=== PATIENT | female | born 1945 | race Caucasian/White ===

== ENCOUNTER 2020-09-23 12:06 | Outpatient (REF) | payer MEDICARE, SELFPAY ==
--- NOTE | ~2020-09-23 | XR_ITS ---
EXAMINATION: XR LUMBOSACRAL SPINE CLINICAL INFORMATION: Right lumbosacral pain. COMPARISON: Lumbar spine 08/30/2017 TECHNIQUE: 4 views of the lumbosacral spine are obtained. FINDINGS: There is normal lumbar segmentation with 5 nonrib-bearing lumbar vertebrae of normal height and normal lumbar lordosis. Again, there is mild dextrocurvature lumbar spine. There is no interval vertebral compression, spondylolisthesis, or destructive process. There are degenerative disc changes greatest at L5-S1 with disc narrowing and endplate sclerosis and vertebral spurring. There is also mild disc narrowing L3-L4 and L4-L5 and facet degeneration from L3 through S1. XR/XR lumbar spine 2-3V IMPRESSION: 1. Degenerative disc changes greatest at L5-S1. Lower lumbar facet degeneration. 2. No vertebral compression, spondylolisthesis, or destructive process.
== END 2020-09-23 12:07 | disposition home or self-care (01) ==
LOC: HO.HMGCX 12:06
PROVIDERS: PCP Internal Medicine; Visit Provider Internal Medicine
DX: M53.3 Sacrococcygeal disorders, not elsewhere classified (principal)
CPT/HCPCS: 72100

== ENCOUNTER 2022-12-31 19:10 | Inpatient (IN) | payer MEDICARE, SELFPAY ==
--- NOTE | ~2022-12-31 | XR_ITS ---
EXAMINATION: XR PELVIS CLINICAL INFORMATION: Left hip fracture COMPARISON: Previous x-ray 12/31/2022 TECHNIQUE: AP view of the pelvis. FINDINGS: There is a new left hip hemiarthroplasty in satisfactory position. No fracture or dislocation. The right hip joint is unremarkable. Bones of the visualized pelvis are unremarkable. There is atherosclerotic disease. XR/XR pelvis 1-2V IMPRESSION: Satisfactory appearance of left hip hemiarthroplasty.
--- NOTE | ~2022-12-31 | XR_ITS ---
EXAMINATION: XR HIP, LEFT CLINICAL INFORMATION: Fall COMPARISON: None available. TECHNIQUE: Frontal view of the pelvis with coned frontal and crosstable lateral views of the left hip. FINDINGS: There is an impacted femoral neck fracture seen with mild varus angulation. The femoral head itself is well-seated within the acetabulum. Contralateral right hip is unremarkable. Extensive vascular calcification seen. Unremarkable bowel gas pattern. XR/XR hip LT min 2V IMPRESSION: Impacted left femoral neck fracture with mild varus angulation.
--- NOTE | ~2022-12-31 | XR_ITS ---
EXAMINATION: PORTABLE CHEST 1 VIEW CLINICAL INFORMATION: Chest pain. COMPARISON: No recent pertinent prior studies are available for comparison. TECHNIQUE: Portable frontal view of the chest was obtained. FINDINGS: The lungs are well expanded. No focal infiltrate, effusion, edema, or pneumothorax. Cardiac and mediastinal silhouettes are within normal limits for size with vascular calcification in aorta. No acute bony abnormality seen. XR/XR chest 1V IMPRESSION: No evidence of acute disease.
--- NOTE | ~2022-12-31 | XR_ITS ---
EXAMINATION: XR KNEE, LEFT CLINICAL INFORMATION: Fall COMPARISON: None available. TECHNIQUE: Two views of the left knee. FINDINGS: No significant joint effusion. Bones are normal anatomic alignment with no acute fracture or dislocation. Mild tricompartmental degenerative changes. Prominent vascular calcification. XR/XR knee LT 2V IMPRESSION: Mild degenerative changes but no acute fracture or dislocation.
[2022-12-31 19:28] VITALS: BP 150/70; BP 161/75; PULSE 53; PULSE 74; RESP 15; TEMP 36.8; O2SAT 100; O2SAT 99; BMI 23.8
[2022-12-31 22:05] VITALS: BP 171/91; PULSE 88; RESP 18; TEMP 36.8; O2SAT 97
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
--- NOTE | 2022-12-31 22:20 | ECG_ITS ---
Test Reason : PRE OP FALL FX HIP Blood Pressure : / mmHG Vent. Rate : 081 BPM Atrial Rate : 081 BPM P-R Int : 166 ms QRS Dur : 070 ms QT Int : 406 ms P-R-T Axes : 065 025 067 degrees QTc Int : 471 ms Sinus rhythm with Premature supraventricular complexes Otherwise normal ECG No previous ECGs available Referred By: Cristian Argueta Electronically Signed By:LISBETH SERRANO
[2022-12-31 22:55] LABS: MANUAL DIFF FLAG NO
[2022-12-31 22:56] LABS: Basophils Percent Auto 0.3 % (0-2); Eosinophils Absolute Auto 0.1 X10*3/uL (0.0-0.4); Eosinophils Percent Auto 0.9 % (0-4); Hemoglobin 12.2 g/dl (12.0-16.0); Imm Gran Abs Auto 0.04 X10*3/uL (0.00-0.03); Imm Gran Pct Auto 0.4 % (0.0-0.4); Lymphocytes Absolute Auto 0.9 X10*3/uL (1.2-4.9); Lymphocytes Percent Auto 8.2 % (20-40); Mean Corpuscular Hemoglobin 30.7 pg (27.0-33.0); Mean Corpuscular Volume 93.2 fL (80.0-98.0); Monocytes Absolute Auto 0.5 X10*3/uL (0.1-1.2); Monocytes Percent Auto 4.3 % (2-11); Neutrophils Percent Auto 85.9 % (45-73); Platelet Count 152 X10*3/uL (160-400); Red Blood Count 3.97 X10*6/uL (4.20-5.50); Red Cell Distribution Width 13.2 % (11.0-16.0); White Blood Count 10.5 X10*3/uL (4.8-10.8)
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
[2022-12-31] MEDS: Morphine Sulfate 4 MG/ML CARTRIDGE IVPUSH (23:01)
[2022-12-31] MEDS: ondansetron HCL 4 MG/2 ML VIAL IVPUSH (23:02)
[2022-12-31 23:06] LABS: INTERNATIONAL NORM RATIO 0.9 (0.9-1.1); Prothrombin Time 11.4 SEC (11.1-13.3)
[2022-12-31 23:08] LABS: Partial Thromboplastin Time 30.1 SEC (26.0-36.4)
[2022-12-31 23:09] VITALS: BP 163/56; PULSE 84; RESP 16; TEMP 37.4; O2SAT 98
[2022-12-31 23:09] LABS: COVID-19 Test Negative (Negative); IDNOW Serial# 6674DD1D
[2022-12-31 23:10] LABS: Alanine Aminotransferase 18 U/L (0-31); Albumin Level 3.6 g/dL (3.5-5.0); Alkaline Phosphatase 71 U/L (39-117); Anion Gap 10 (12-20); Aspartate Amino Transferase 24 U/L (5-31); Bilirubin Total 0.5 mg/dL (0.0-1.0); Blood Urea Nitrogen 17 mg/dL (9-16); Calcium 9.2 mg/dL (8.4-10.2); Carbon Dioxide 27 mmol/L (22-29); Chloride 108 mmol/L (96-108); Creatinine Clr Calc Pharmacy 44.5; Estimated Glomerular Filt Rate 56; Glucose Random 156 mg/dL (60-115); Lipase 34 U/L (8-78); Potassium 4.2 mmol/L (3.3-5.1); Sodium 141 mmol/L (135-145); Total Protein 6.4 g/dL (6.5-8.0)
[2022-12-31] MEDS: Lactated Ringers 1,000 ML 125 ML IVCONT (23:54)
[2022-12-31] MEDS: 0.9 % Sodium Chloride Flush 3 ML SYRINGE IVFLUSH (23:54)
[2023-01-01 00:30] VITALS: BP 181/72; PULSE 90; RESP 20; TEMP 37; O2SAT 96
[2023-01-01] MEDS: HYDROmorphone HCl 1 MG/ML SYRINGE IVPUSH (00:34)
[2023-01-01] MEDS: Morphine Sulfate 4 MG/ML CARTRIDGE IVPUSH ×2 (02:44→07:12)
[2023-01-01 03:32] VITALS: BP 139/65; PULSE 88; RESP 18; TEMP 36.9; O2SAT 99
[2023-01-01 06:06] LABS: MANUAL DIFF FLAG NO
[2023-01-01 06:12] LABS: Basophils Percent Auto 0.2 % (0-2); Eosinophils Percent Auto 0.1 % (0-4); Hematocrit 39.3 % (37.0-47.0); Hemoglobin 12.7 g/dl (12.0-16.0); Imm Gran Abs Auto 0.05 X10*3/uL (0.00-0.03); Imm Gran Pct Auto 0.4 % (0.0-0.4); Lymphocytes Absolute Auto 0.8 X10*3/uL (1.2-4.9); Lymphocytes Percent Auto 6.9 % (20-40); Mean Corpuscular HGB Conc 32.3 g/dl (31.0-35.0); Mean Corpuscular Hemoglobin 30.8 pg (27.0-33.0); Mean Corpuscular Volume 95.2 fL (80.0-98.0); Monocytes Absolute Auto 0.6 X10*3/uL (0.1-1.2); Monocytes Percent Auto 5.5 % (2-11); Neutrophils Absolute Auto 10.1 x10*3/uL (2.0-8.3); Neutrophils Percent Auto 86.9 % (45-73); Platelet Count 131 X10*3/uL (160-400); Red Blood Count 4.13 X10*6/uL (4.20-5.50); Red Cell Distribution Width 13.3 % (11.0-16.0); White Blood Count 11.6 X10*3/uL (4.8-10.8)
[2023-01-01 06:41] LABS: Anion Gap 14 (12-20); Blood Urea Nitrogen 19 mg/dL (9-16); Calcium 9.2 mg/dL (8.4-10.2); Carbon Dioxide 23 mmol/L (22-29); Chloride 107 mmol/L (96-108); Creatinine Clr Calc Pharmacy 47.9; Estimated Glomerular Filt Rate > 60; Glucose Random 139 mg/dL (60-115); Potassium 4.8 mmol/L (3.3-5.1); Sodium 139 mmol/L (135-145)
[2023-01-01] MEDS: Lactated Ringers 1,000 ML 125 ML IVCONT ×3 (07:13→20:27)
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
--- NOTE | 2023-01-01 07:47 | PHA.MEDREC ---
Pharmacy Consult ? Medication Reconciliation Pharmacy has completed the medication reconciliation.
[2023-01-01 08:00] VITALS: BP 144/65; PULSE 80; RESP 18; TEMP 36.4; O2SAT 96
[2023-01-01] MEDS: Ezetimibe 10 MG TABLET PO (08:16)
[2023-01-01] MEDS: Atorvastatin Calcium 80 MG TABLET PO (08:16)
[2023-01-01] MEDS: Metoprolol Tartrate 100 MG TABLET PO ×2 (08:16→20:24)
--- NOTE | 2023-01-01 08:54 | PC.NURSE ---
called and left info update about patient.
[2023-01-01] MEDS: Morphine Sulfate 4 MG/ML CARTRIDGE 3 MG IVPUSH ×4 (10:42→20:24)
[2023-01-01] MEDS: LORazepam 0.5 MG TABLET PO (10:42)
--- NOTE | 2023-01-01 11:58 | PC.NURSE ---
Pt states her Left foot feels numb, color is normal, both feet are cold but her legs are warm, no swelling, able to move her toes, +PP. notified.
[2023-01-01 15:37] VITALS: BP 146/67; PULSE 62; RESP 20; TEMP 36.4; O2SAT 93
--- NOTE | 2023-01-01 16:15 | MHC.CM.PN ---
PT REPORTS SHE LIVES WITH HER SPOUSE AND IS INDEPENDENT WITH CARE PT REPORTS SHE HAS NO DME AND NO HOME SERVICES PT DOES NOT THINK SHE HAS A HCP, SHE SAYS SHE WOULD NAME HER AND NIECE, EDIE PEREZ, HER AGENTS, HOWEVER SHE WOULD LIKE TO WAIT UNTIL TOMORROW. SHE WILL CONFIRM SHE DOES NOT HAVE ONE AND FEELS TOO TIRED TODAY. PCP: BURT ESTRADA IMM DELIVERED DCP: LIKELY STR VIA BLS PT WILL GIVE PREFERENCES TOMORROW WELL
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
[2023-01-01 20:00] VITALS: BP 151/59; PULSE 68; RESP 20; TEMP 36.6; O2SAT 93
[2023-01-01] MEDS: Melatonin 3 MG TABLET 6 MG PO (20:24)
[2023-01-02] VITALS (16 sets, daily range): BP systolic 131–174; BP diastolic 52–73; PULSE 56–76; RESP 16–20; TEMP 36.1–36.6; O2SAT 92–97
[2023-01-02] MEDS: Morphine Sulfate 4 MG/ML CARTRIDGE 3 MG IVPUSH ×2 (04:11→08:20)
[2023-01-02] MEDS: Lactated Ringers 1,000 ML 125 ML IVCONT ×2 (04:12→17:35)
[2023-01-02] MEDS: Atorvastatin Calcium 80 MG TABLET PO (08:20)
[2023-01-02] MEDS: Ezetimibe 10 MG TABLET PO (08:20)
[2023-01-02] MEDS: Metoprolol Tartrate 100 MG TABLET PO ×2 (08:20→20:28)
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
--- NOTE | 2023-01-02 14:57 | MHC.CM.PN ---
pt being dcd to psych unit
--- NOTE | 2023-01-02 14:59 | MHC.CM.PN ---
per rounds pt is not ready for dcmay have hip fx
[2023-01-02] MEDS: 0.9 % Sodium Chloride Flush 3 ML SYRINGE IVFLUSH (17:37)
[2023-01-02] MEDS: ceFAZolin Sodium/Dextrose,Iso 2 GM/50 ML PIGGYBACK IV (20:28)
[2023-01-02] MEDS: Aspirin Enteric Coated 325 MG TABLET.DR PO (20:28)
--- NOTE | 2023-01-02 22:20 | PC.NURSE ---
Patient voided twice this shift with assistance of MORGAN Trinidad#3 at [id number]
[2023-01-03] VITALS (7 sets, daily range): BP systolic 113–177; BP diastolic 58–77; PULSE 68–84; RESP 16–18; TEMP 36.4–36.8; O2SAT 95–97
[2023-01-03] MEDS: ceFAZolin Sodium/Dextrose,Iso 2 GM/50 ML PIGGYBACK IV (03:58)
[2023-01-03 06:07] LABS: Hematocrit 32.3 % (37.0-47.0); Hemoglobin 10.5 g/dl (12.0-16.0)
[2023-01-03 06:19] LABS: Anion Gap 15 (12-20); Blood Urea Nitrogen 16 mg/dL (9-16); Calcium 8.4 mg/dL (8.4-10.2); Carbon Dioxide 24 mmol/L (22-29); Chloride 104 mmol/L (96-108); Creatinine Clr Calc Pharmacy 51.4; Estimated Glomerular Filt Rate > 60; Glucose Fasting 134 mg/dL (60-99); Sodium 139 mmol/L (135-145)
[2023-01-03] MEDS: Aspirin Enteric Coated 325 MG TABLET.DR PO ×2 (07:30→21:27)
[2023-01-03] MEDS: Ezetimibe 10 MG TABLET PO (07:30)
[2023-01-03] MEDS: lisinopriL 20 MG TABLET PO (07:31)
[2023-01-03] MEDS: Atorvastatin Calcium 80 MG TABLET PO (07:31)
[2023-01-03] MEDS: oxyCODONE HCl Immed Release 5 MG TABLET PO ×3 (07:31→18:08)
[2023-01-03] MEDS: Metoprolol Tartrate 100 MG TABLET PO ×2 (07:31→21:28)
[2023-01-03] MEDS: 0.9 % Sodium Chloride Flush 3 ML SYRINGE IVFLUSH ×6 (07:32→18:27)
--- NOTE | 2023-01-03 10:08 | P.PNOP_ITS ---
Subjective Subjective Date of Service: 01/03/23 Interval history: POD 1 s/p Left hip hemiarthroplasty no overnight e vents resting in bed Physical Exam Vital Signs: Vital Signs: Last Vital Signs Temp 98.3 F 01/03/23 07:04 Pulse 84 01/03/23 07:04 Resp 18 01/03/23 07:04 BP 160/68 H 01/03/23 07:04 Pulse Ox 97 01/03/23 07:04 O2 Del Method Nasal Cannula 01/03/23 07:04 O2 Flow Rate 3 01/03/23 07:04 BMI result Body Mass Index 23.8 Const: General: cooperative, healthy appearing and no acute distress Resp: Effort & Inspection: normal respiratory effort and able to speak in complete sentences Cardio: Rate: regular rate Peripheral pulses: Peripheral pulses 2+ throughout GI: Palpation (GI): Soft to palpation Skin: General skin exam: no rashes or lesions noted Extrem: Other: left hip bandage c/d/i, she is able to plantar and dorsifex, nvi Procedures Date of Service Date of Service: 01/03/23 Progress Note: A&P Assessment and plan (1) Fracture of femoral neck, closed: Status: Acute Assessment and Plan: * Continue pain mgmnt * Begin lovenox for dvt ppx * begin PT /OT for LT hip ny * Dispo planning-Pending PT eval, pain mgmnt Time Spent With Patient Time: Total time managing care of this patient today ____ minutes. Quality Stroke Does the patient have a stroke diagnosis?: No VTE Prior VTE?: No VTE Risk Level:: Medical - moderate - high VTE Device Contraindication: Treatment Not Indicated VTE Drug Contraindication: N/A - Med Ordered
--- NOTE | 2023-01-03 11:44 | HO.POSTANES ---
Post Anesthesia Evaluation Post Anesthesia Evaluation Date of Service: 01/03/23 Vital Signs: Vital Signs Temp Pulse Resp BP Pulse Ox O2 Del Method O2 Flow Rate 01/03/23 11:06 84 160/68 H 97 01/03/23 07:04 98.3 F 84 18 160/68 H 97 Nasal Cannula 3 01/03/23 03:36 97.6 F 81 18 177/77 H 96 Nasal Cannula 2 Anesthesia: General Mental Status: Awake Pain Control: Satisfactory Nausea/Vomiting: None Hydration: Adequate Anesthesia-Related Issues: No Anes. Related Issues
[2023-01-03] MEDS: Enoxaparin Sodium 40 MG/0.4 ML SYRINGE SUBCUT (12:38)
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
[2023-01-03] MEDS: Acetaminophen 325 MG TABLET 650 MG PO (21:28)
[2023-01-04] MEDS: 0.9 % Sodium Chloride Flush 3 ML SYRINGE IVFLUSH (00:26)
[2023-01-04 03:46] VITALS: BP 157/70; PULSE 88; RESP 17; TEMP 36.6; O2SAT 95
[2023-01-04] MEDS: Metoprolol Tartrate 100 MG TABLET PO (07:27)
[2023-01-04] MEDS: oxyCODONE HCl Immed Release 5 MG TABLET PO (07:28)
[2023-01-04] MEDS: Aspirin Enteric Coated 325 MG TABLET.DR PO (07:28)
[2023-01-04] MEDS: Atorvastatin Calcium 80 MG TABLET PO (07:28)
[2023-01-04] MEDS: lisinopriL 20 MG TABLET PO (07:28)
[2023-01-04] MEDS: Acetaminophen 325 MG TABLET 650 MG PO (07:29)
[2023-01-04] MEDS: Ezetimibe 10 MG TABLET PO (07:29)
[2023-01-04 07:33] VITALS: BP 139/66; PULSE 103; RESP 20; TEMP 36.8; O2SAT 93
--- NOTE | 2023-01-04 07:41 | P.PNOP_ITS ---
Subjective Subjective Date of Service: 01/04/23 Interval history: POD 2 s/p Left hip hemiarthroplasty no overnight events resting in bed no additional complaints Physical Exam Vital Signs: Vital Signs: Last Vital Signs Temp 98.2 F 01/04/23 07:33 Pulse 103 H 01/04/23 07:33 Resp 20 01/04/23 07:33 BP 139/66 01/04/23 07:33 Pulse Ox 93 01/04/23 07:33 O2 Del Method Room Air 01/04/23 07:33 O2 Flow Rate 3 01/03/23 07:04 BMI result Body Mass Index 23.8 Const: General: cooperative, healthy appearing and no acute distress Resp: Effort & Inspection: normal respiratory effort and able to speak in complete sentences Cardio: Rate: regular rate Peripheral pulses: Peripheral pulses 2+ throughout GI: Palpation (GI): Soft to palpation Skin: General skin exam: no rashes or lesions noted Extrem: Other: left hip bandage c/d/i, she is able to plantar and dorsifex, nvi Procedures Date of Service Date of Service: 01/04/23 Progress Note: A&P Assessment and plan (1) Fracture of femoral neck, closed: Status: Acute Assessment and Plan: * Continue pain mgmnt * Continue lovenox for dvt ppx * Continue PT /OT for LT hip ny * Dispo planning-Pending PT eval, pain mgmnt Time Spent With Patient Time: Total time managing care of this patient today ____ minutes. Quality Stroke Does the patient have a stroke diagnosis?: No VTE Prior VTE?: No VTE Risk Level:: Medical - moderate - high VTE Device Contraindication: Treatment Not Indicated VTE Drug Contraindication: N/A - Med Ordered
[2023-01-04 08:32] VITALS: BP 139/66; PULSE 103; O2SAT 93
--- NOTE | 2023-01-04 09:16 | MHC.CM.PN ---
PATIENT IS ACCEPTED AT [facility] UNIT ROOM 101 PATIENT AND RN AWARE. [facility] WILL BE ON SITE BETWEEN 11:15-11:45. IMM 01/03/23 IN CHART
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
[2023-01-04 11:52] VITALS: BP 110/55; PULSE 54; RESP 20; TEMP 36.2; O2SAT 95
--- NOTE | 2023-01-05 15:24 | P.BOP_ITS ---
Brief Operative Note Date of Service: 01/02/23 Pre-op diagnosis: Left hip displaced femoral neck fracture Post-op diagnosis: same Procedure: Left hip cemented bipolar hemiarthroplasty Implants: Eden cemented bipolar hemiarthroplasty with an Accolade C femoral stem size 3, a femoral head size 26 with a-3 mm neck, femoral shell size 43, a small cement plug, distal centralizer size 10 Surgeon: Travon Durbin MD Anesthesia: GETA Was an Inside Sales Representative used for this Procedure?: No Estimated blood loss (mL): 200 Condition: stable Disposition: PACU
--- NOTE | 2023-01-05 15:25 | W.PM.OPN ---
Operative Note Operative Note Date of Service: 01/02/23 Narrative: After the patient was identified as Darlene hooker and their left hip was initialed by myself the patient was brought to the operating room where general anesthesia via endotracheal tube was induced by the anesthesiologist in routine fashion. The patient was given 2 g of IV Ancef for infection prophylaxis. The patient was then gently rolled into the lateral position. An axillary roll was put into place. All bony prominences were well padded. The patient's pelvis was held securely with hip bolsters. The patient's left hip region and lower extremity were prepped and draped in sterile fashion. A #10 scalpel blade was then used to make a curvilinear incision centered over the greater trochanter. The subcutaneous tissues were dissected using electrocautery down to the fascia kori. The fascia kori was then split in line with the skin incision using electrocautery. The split in the fascia kori was curved posteriorly along its cephalad aspect to help prevent injury to the innervation of the tensor fascia kori muscle. The patient's leg was gently externally rotated. A lateral Wiseman approach was then taken down to the anterior joint capsule. The anterior half of the vastus lateralis was split 1 cm from its insertion and tagged with #2 Ethibond suture. The anterior 1/3 of the gluteus medius incision was then split using electrocautery and tagged with #2 Ethibond suture. An anterior capsulectomy was then performed using electrocautery. The femoral neck fracture was identified. The patient's lower extremity was gently externally rotated. The femoral neck cut was made 1 cm proximal to the lesser trochanter. The femoral head was then removed using a corkscrew. The femoral head measured to be a size 43. The trial size 43 femoral head was put into the acetabulum. The trial fit well. The trial was removed. The acetabulum was irrigated with copious amounts of normal saline solution via pulse lavage. The patient's leg was then placed into a sterile pouch along the anterior aspect of the surgical suite table. Soft tissues were retracted around the proximal femur. A box cutting osteotome was used to make a groove in the medial aspect of the greater trochanter. Broaching was begun with a size 0 press-fit broach. Broaching was increased up to a size 3 cemented broach. The size 3 broach fit well. The broach was removed. The distal centralizer was measured to be a size 10. A small cement plug was put into place. The intramedullary canal was irrigated with copious amounts of normal saline solution via pulse lavage while the cement was mixed. Once the cement reached a doughy state it was pressurized into the intramedullary canal. The final implant was put into place. Once the cement had hardened a trial size 43 shell with a -3 mm neck was put into place. The hip was reduced. Leg lengths were clinically equal. The hip was taken through a full range of motion. There was no instability. The hip was dislocated and the patient's leg was placed into the sterile pouch. The trial head was removed. The wound was irrigated with copious amounts of normal saline solution via pulse lavage. The final head and shell were impacted in the place. Leg lengths were clinically equal. Hip was taken through a full range of motion. There was no instability. The patient's leg was then placed onto a well-padded Bucio stand. The wound was once again irrigated. The vastus lateralis and tensor fascia kori tendons were repaired with #2 Ethibond [id number] interrupted suture. The wound was once again irrigated. The fascia kori was closed with #2 Ethibond [id number] interrupted suture as well as #1 Vicryl [id number] interrupted suture. The wound was once again irrigated. The subcutaneous tissues were closed with 0 Vicryl and 2-0 Vicryl interrupted suture. The skin was closed with skin svitlana. Dry sterile dressing was placed over the incision. The patient was gently rolled into the supine position. The patient was awoken and extubated in the operating room. The patient was transferred to the recovery room in stable condition.
== END 2023-01-04 12:03 | disposition skilled nursing facility (03) | DRG 522 ==
LOC: HO.ED 22:53 → HO.EDOVER 23:11 → HO.S3 23:24
PROVIDERS: Orthopaedic Surgery; Admitting Provider Student in an Organized Health Care Education/Training Program; Emergency Provider Emergency Medicine Emergency Medical Services; PCP Internal Medicine; Visit Provider Internal Medicine
PROC: 0SRS0J9 Replacement of Left Hip Joint, Femoral Surface with Synthetic Substitute, Cemented, Open Approach (ICD-10-PCS; CPT 27125; principal; 2023-01-02 12:00)
DX: S72.002A Fracture of unspecified part of neck of left femur, initial encounter for closed fracture (principal); W19.XXXA Unspecified fall, initial encounter; F39 Unspecified mood [affective] disorder; I10 Essential (primary) hypertension; E78.2 Mixed hyperlipidemia; Z20.822 Contact with and (suspected) exposure to COVID-19; Z79.51 Long term (current) use of inhaled steroids; Z79.899 Other long term (current) drug therapy
CPT/HCPCS: 36415; 71045; 72170; 73502; 73560; 80048; 80053; 83690; 85014; 85018; 85025; 85610; 85730; 86850; 86900; 86901; 87635; 88305; 88311; 93005; 97110; 97116; 97162; 97165; 99285; C1713; C1776; J0131; J0690; J1100; J1170; J1650; J2270; J2371; J2405; J3010; J3370

== ENCOUNTER → 2022-12-31 22:57 | Outpatient (BNV) | payer MEDICARE, SELFPAY | PROVIDERS: Admitting Provider Student in an Organized Health Care Education/Training Program; Emergency Provider Emergency Medicine Emergency Medical Services; PCP Internal Medicine; Visit Provider Physician Assistant | DX: S72.002A Fracture of unspecified part of neck of left femur, initial encounter for closed fracture (principal) | CPT/HCPCS: 27236; 99024; 99222; 99231 ==

== ENCOUNTER → 2022-12-31 22:57 | Outpatient (BNV) | payer MEDICARE, SELFPAY | PROVIDERS: Admitting Provider Student in an Organized Health Care Education/Training Program; Emergency Provider Emergency Medicine Emergency Medical Services; PCP Internal Medicine; Visit Provider Student in an Organized Health Care Education/Training Program | DX: S72.002A Fracture of unspecified part of neck of left femur, initial encounter for closed fracture (principal); I10 Essential (primary) hypertension | CPT/HCPCS: 99222; 99231; 99232; 99239 ==

== ENCOUNTER 2023-01-16 09:56 | Outpatient (REF) | payer MEDICARE, SELFPAY ==
--- NOTE | ~2023-01-16 | XR_ITS ---
EXAMINATION: XR PELVIS CLINICAL INFORMATION: Pain in unspecified hip. COMPARISON: 01/02/2023 TECHNIQUE: AP view of the pelvis. FINDINGS: Prosthetic components of the left bipolar hip hemiarthroplasty appears appropriately positioned. The cemented femoral component is intact without surrounding lucency. Right hip joint appears relatively well-preserved. SI joints are unremarkable. No acute fractures. Calcific atherosclerosis is present in the iliac and femoral arteries. No acute soft tissue findings. XR/XR pelvis 1-2V IMPRESSION: Appropriate alignment of the left hip hemiarthroplasty without evidence of complications. No acute osseous findings.
== END 2023-01-16 09:57 | disposition home or self-care (01) ==
LOC: HO.HOSX 09:56
PROVIDERS: Visit Provider Physician Assistant
DX: S72.002D Fracture of unspecified part of neck of left femur, subsequent encounter for closed fracture with routine healing (principal); X58.XXXD Exposure to other specified factors, subsequent encounter
CPT/HCPCS: 72170

== ENCOUNTER 2023-01-16 14:10 | Outpatient (AMB) | payer MEDICARE, SELFPAY ==
--- NOTE | 2023-01-16 14:29 | A.OFFVIS_ITS ---
Intake Intake Visit Reasons: PO- left hip ny 01/02/2023 Intake Note: Darlene is a 77 year old woman who presents today for a post operative appointment s/p Left Hip Arthroplasty on 01/02/[address] Faulkner . Patient reports that she is doing well she has mild about of pain in the left hip. Allergies sucralfate [From CARAFATE] Allergy (Unknown, Verified 01/01/23 00:09) ITCHING HPI PO- left hip ny 01/02/2023 HPI Details Ms. Granda is a 77-year-old female who presents the office today for routine follow-up status post left hip hemiarthroplasty on 01/02/[address] Durbin. Overall patient is doing very well. She has been discharged home from [facility]. She is ambulating with the use of a walker. Is only using Tylenol for pain management. However, the patient has not taken any Lovenox since discharge on Monday. [facility] Medical History Mood disorder Essential hypertension Mixed hyperlipidemia Social History Household Members: Spouse Housing: [facility] Do you presently have visiting nurse or other home services: No Alcohol intake: never Patient Tobacco Use Status: Never used Tobacco service: No Physical Exam Const General: cooperative, healthy appearing and no acute distress Resp Effort & Inspection: normal respiratory effort and able to speak in complete sentences Cardio Rate: regular rate Peripheral pulses: Peripheral pulses 2+ throughout GI Palpation (GI): Soft to palpation Skin Lesions: no lesions Rashes: no rashes Extrem Other: Left hip incision sites clean dry and intact. [place] intact. No surrounding erythema or drainage. No signs of infection. Able to straight leg raise. Good internal external range of motion. NVI. Assessment & Plan Assessment & Plan (1) Fracture of femoral neck, closed: Code(s): S72.009A - Fracture of unspecified part of neck of unspecified femur, initial encounter for closed fracture Qualifiers: Encounter type: initial encounter Laterality: left Qualified Code(s): S72.002A - Fracture of unspecified part of neck of left femur, initial encounter for closed fracture Plan: Ms. Granda is a 77-year-old female who presents the office today for routine follow-up status post left hip hemiarthroplasty on 01/02/[address] Durbin. Overall patient is doing very well. [facility] She is ambulating with the use of a walker. Is only using Tylenol for pain management. However, the patient has not taken any Lovenox since discharge on Monday. I have sent a new prescription to the pharmacy for her. [place] removed. Steri- Strips applied. She will have VNA services coming to her home for physical therapy. They should work on glute, core, quad strengthening and gait training. X-rays obtained the office today reveal intact orthopedic hardware with routine healing. Follow-up in 4 weeks sooner if needed. Orders: Orders XR pelvis 1-2V Today M25.559 - Pain in unspecified hip Medications: New enoxaparin (Lovenox) 40 mg (0.4 mL) subcut Q24H 12 mL 0RF 30 days Coding Level of Care Code Global (81526) Diagnoses Fracture of femoral neck, closed S72.002A Encounter type: initial encounter Laterality: left
== END 2023-01-16 14:55 | disposition home or self-care (01) ==
PROVIDERS: PCP Internal Medicine; Visit Provider Physician Assistant
DX: S72.002A Fracture of unspecified part of neck of left femur, initial encounter for closed fracture (principal)
CPT/HCPCS: 99024

== ENCOUNTER 2023-02-16 14:05 | Outpatient (AMB) | payer MEDICARE, SELFPAY ==
--- NOTE | 2023-02-16 14:08 | MHC.OFFVIS ---
Intake Intake Visit Reasons: PO-left hip ny 01/02/2023 Intake Note: Darlene is a 77 year old woman who presents today for a post operative appointment s/p Left Hip Arthroplasty on 01/02/[address] Faulkner . Patient reports doing fine. She states taking a Tylenol when she feels some discomfort and it helps her a lot. Allergies sucralfate [From CARAFATE] Allergy (Unknown, Verified 02/16/23 14:09) ITCHING HPI PO-left hip ny 01/02/2023 HPI Details 77-year-old female who presents in the office today 6 weeks status post left hip cemented bipolar hemiarthroplasty, which was performed on 01/02/[address] Durbin. While in the office today she reports he is doing fine. She confirms she is taking tylenol when she feels discomfort, which this gives her great relief. [facility] Medical History Mood disorder Essential hypertension Mixed hyperlipidemia Social History Household Members: Spouse Housing: [facility] Do you presently have visiting nurse or other home services: No Alcohol intake: never Patient Tobacco Use Status: Never used Tobacco service: No Review of Systems Const All systems reviewed & are unremarkable except as noted in HPI and below Physical Exam Const General: cooperative, healthy appearing and no acute distress Resp Effort & Inspection: normal respiratory effort and able to speak in complete sentences Cardio Rate: regular rate Peripheral pulses: Peripheral pulses 2+ throughout GI Palpation (GI): Soft to palpation Skin Lesions: no lesions Rashes: no rashes Extrem Other: Left hip: Incision site is clean, dry, and intact; completely healed. No signs of infection. Good flexion, extension, internal, and external rotation. NVI. Assessment & Plan Assessment & Plan (1) History of left hip hemiarthroplasty: Code(s): Z96.642 - Presence of left artificial hip joint Plan Ms. Granda is a 77-year-old female who presents in the office today 6 weeks status post left hip cemented bipolar hemiarthroplasty, which was performed on 01/02/[address] Durbin. While in the office today she reports he is doing fine. She confirms she is taking tylenol when she feels discomfort, which this gives her great relief. The patient will continue to work with physical therapy on gait training, glute, quad, and core strengthening posterior hip precautions. Follow up will be in 6 weeks, or sooner if needed. X-rays of the left hip which were obtained while in the office today and were reviewed by me, Mercedes Rodríguez PA-C, revealed intact orthopedic hardware with routine healing. Patient Instructions: Scribed for Mercedes Rodríguez PA-C by Veran Charlton medical transcription, on 02/16/2023 at 2:15 pm, EST. Coding Level of Care Code Global (67442) Diagnoses History of left hip hemiarthroplasty Z96.642
== END 2023-02-16 14:55 | disposition home or self-care (01) ==
PROVIDERS: PCP Internal Medicine; Visit Provider Physician Assistant
DX: Z96.642 Presence of left artificial hip joint (principal)
CPT/HCPCS: 99024

== ENCOUNTER → 2023-02-16 14:05 | Outpatient (BNVA) | payer MEDICARE, SELFPAY | PROVIDERS: PCP Internal Medicine; Visit Provider Physician Assistant ==

== ENCOUNTER 2023-03-30 13:03 | Outpatient (AMB) | payer MEDICARE, SELFPAY ==
--- NOTE | 2023-03-30 13:13 | A.OFFVIS_ITS ---
Intake Intake Visit Reasons: PO-left hip ny 01/02/2023 Intake Note: Darlene is a 77 year old female who presents today with her for a post op appointment s/p left hip ny 01/02/23 Patient reports having some soreness when over doing it with walking. Allergies sucralfate [From CARAFATE] Allergy (Unknown, Verified 03/30/23 13:16) ITCHING HPI PO-left hip ny 01/02/2023 HPI Details 77-year-old female who presents in the o ffice today 3 months status post left hip cemented bipolar hemiarthroplasty, which was performed on 01/02/[address] Durbin. I last saw the patient in the office on 02/16/2023 where she was instructed to continue to work with physical therapy on gait training, glute, quad, and core strengthening posterior hip precautions. The patient reports some soreness when over doing it while walking. [facility] Medical History Mood disorder Essential hypertension Mixed hyperlipidemia Social History Household Members: Spouse Housing: [facility] Do you presently have visiting nurse or other home services: No Alcohol intake: never Patient Tobacco Use Status: Never used Tobacco service: No Review of Systems Const All systems reviewed & are unremarkable except as noted in HPI and below Physical Exam Const General: cooperative, healthy appearing and no acute distress Resp Effort & Inspection: normal respiratory effort and able to speak in complete sentences Cardio Rate: regular rate Peripheral pulses: Peripheral pulses 2+ throughout GI Palpation (GI): Soft to palpation Skin Lesions: no lesions Rashes: no rashes Extrem Other: Left hip: Incision site is completely healed with no signs of infection. Ambulating without antalgic gait. Good internal and external rotation. NVI. Assessment & Plan Assessment & Plan (1) History of left hip hemiarthroplasty: Code(s): Z96.642 - Presence of left artificial hip joint Plan Ms. Granda is a 77-year-old female who presents in the office today 3 months status post left hip cemented bipolar hemiarthroplasty, which was performed on 01/02/[address] Durbin. I last saw the patient in the office on 02/16/2023 wh ere she was instructed to continue to work with physical therapy on gait training, glute, quad, and core strengthening posterior hip precautions. The patient reports some soreness when over doing it while walking. The patient ambulates with a cane as an assistive device. She will return to normal activities as tolerated. She has completed all her physical therapy sessions at this time. Follow up will be PRN, or sooner if needed. Patient Instructions: Scribed for Mercedes Rodríguez PA-C by Verna Charlton electromedical equipment repairer, on 03/30/2023 at 1:09 pm, EST. Coding Level of Care Code Global (41980) Diagnoses History of left hip hemiarthroplasty Z96.642
== END 2023-03-30 13:31 | disposition home or self-care (01) ==
PROVIDERS: PCP Internal Medicine; Visit Provider Physician Assistant
DX: Z96.642 Presence of left artificial hip joint (principal)
CPT/HCPCS: 99024

== ENCOUNTER → 2023-03-30 13:03 | Outpatient (BNVA) | payer MEDICARE, SELFPAY | PROVIDERS: PCP Internal Medicine; Visit Provider Physician Assistant | DX: Z96.642 Presence of left artificial hip joint (principal) | CPT/HCPCS: 99212 ==

== ENCOUNTER 2023-07-13 12:47 | Outpatient (REF) | payer MEDICARE, SELFPAY ==
[2023-07-13 16:25] LABS: MANUAL DIFF FLAG NO
[2023-07-13 16:27] LABS: Basophils Percent Auto 0.6 % (0-2); Eosinophils Absolute Auto 0.4 X10*3/uL (0.0-0.4); Hematocrit 38.9 % (37.0-47.0); Hemoglobin 12.5 g/dl (12.0-16.0); Imm Gran Abs Auto 0.02 X10*3/uL (0.00-0.03); Imm Gran Pct Auto 0.3 % (0.0-0.4); Lymphocytes Absolute Auto 1.6 X10*3/uL (1.2-4.9); Lymphocytes Percent Auto 26.1 % (20-40); Mean Corpuscular HGB Conc 32.1 g/dl (31.0-35.0); Mean Corpuscular Hemoglobin 30.2 pg (27.0-33.0); Monocytes Absolute Auto 0.6 X10*3/uL (0.1-1.2); Monocytes Percent Auto 9.7 % (2-11); Neutrophils Absolute Auto 3.5 x10*3/uL (2.0-8.3); Neutrophils Percent Auto 56.3 % (45-73); Platelet Count 170 X10*3/uL (160-400); Red Blood Count 4.14 X10*6/uL (4.20-5.50); Red Cell Distribution Width 13.9 % (11.0-16.0); White Blood Count 6.2 X10*3/uL (4.8-10.8)
[2023-07-13 16:39] LABS: Anion Gap 11 (12-20); Blood Urea Nitrogen 22 mg/dL (9-16); Calcium 9.5 mg/dL (8.4-10.2); Carbon Dioxide 30 mmol/L (22-29); Chloride 106 mmol/L (96-108); Estimated Glomerular Filt Rate 55; Glucose Random 80 mg/dL (60-115); Potassium 4.9 mmol/L (3.3-5.1); Sodium 142 mmol/L (135-145)
== END 2023-07-13 12:48 | disposition home or self-care (01) ==
LOC: HO.HMGCLDS 12:47
PROVIDERS: PCP Internal Medicine; Visit Provider Internal Medicine
DX: R53.83 Other fatigue (principal)
CPT/HCPCS: 36415; 80048; 85025

== ENCOUNTER 2023-07-20 10:27 | Outpatient (REF) | payer MEDICARE, SELFPAY ==
--- NOTE | ~2023-07-20 | MM_ITS ---
EXAMINATION: BONE DENSITOMETRY CLINICAL INDICATION: Postmenopausal. COMPARISON: This is the patient's baseline examination. TECHNIQUE: Using a [employer] DXA System (software version: 13.1) manufactured by [employer], dual-energy x-ray absorptiometry was performed of the lumbar spine and right hip. Status post left total hip arthroplasty. The images are of good technical quality. Summary results are attached. FINDINGS: RIGHT FEMUR, NECK: BMD 0.723 g/cm2, Z-score -0.1, T-score -2.3, osteopenia. RIGHT FEMUR, TOTAL: BMD 0.733 g/cm2, Z-score -0.2, T-score -2.2, osteopenia. AP SPINE L1-L4: BMD 1.061 g/cm2, Z-score 0.9, T-score -1.0, normal. IDENTIFIED RISK FACTORS: Early menopause, history of fracture (adult), hysterectomy, bilateral oophorectomy, secondary osteoporosis. HISTORY OF FRACTURE: Hip. MEDICATIONS: Multivitamin. MM/XR DEXA axial skeleton IMPRESSION: 1. DIAGNOSIS: Osteopenia based on the lowest T-score value of -2.3 in the femoral neck applying World Health Organization criteria. 2. 10-YEAR FRACTURE RISK PREDICTION, FRAX: Major osteoporotic fracture (clinical spine, forearm, hip or shoulder) 23.2%. Hip fracture 7.1%. 3. Treatment Recommendations: NOF guidelines recommend consideration for treatment in postmenopausal women and men age 50 and older presenting with the following: -A hip or vertebral (clinical or morphometric) fracture. -T-score less than or equal to -2.5 at the femoral neck or spine after appropriate evaluation to exclude secondary causes. -Low bone mass at the hip or spine and a 10-year fracture probability by FRAX of greater than or equal to 3% for hip fracture or greater than or equal to 20% for major osteoporotic fracture based on the [place] adapted WHO algorithm. 4. Other Recommendations: All treatment decisions require clinical judgment and consideration of individual patient factors, including patient preferences, comorbidities, previous drug use, risk factors not captured in the FRAX model (e.g. frailty, falls, vitamin D deficiency, increased bone turnover, interval significant decline in bone density) and possible under or overestimation of fracture risk by FRAX. Additional medical evaluation for secondary cause of low bone mineral density may be appropriate. FUTURE SCAN RECOMMENDATION: People with diagnosed cases of osteoporosis or at high risk for fracture should have regular bone mineral density tests. For patients eligible for Medicare, routine testing is allowed once every 2 years. The testing frequency can be increased to one year for patients who have rapidly progressing disease, those who are receiving or discontinuing medical therapy to restore bone mass, or have additional risk factors.
== END 2023-07-20 10:28 | disposition home or self-care (01) ==
LOC: HO.MAMMO 10:27
PROVIDERS: PCP Internal Medicine; Visit Provider Internal Medicine
DX: Z13.820 Encounter for screening for osteoporosis (principal); Z78.0 Asymptomatic menopausal state
CPT/HCPCS: 77080

== ENCOUNTER 2023-09-25 11:37 | Outpatient (REF) | payer MEDICARE, SELFPAY ==
--- NOTE | ~2023-09-25 | XR_ITS ---
EXAMINATION: XR CHEST CLINICAL INFORMATION: Cough, rule out pneumonia COMPARISON: 01/01/2020 TECHNIQUE: 2 views of the chest were obtained. FINDINGS: Lungs are well-inflated. There is no gross pneumothorax. Cardiac silhouette is borderline enlarged. Mild S-shaped thoracolumbar scoliosis multilevel degenerative changes. No gross pleural effusion. No new focal consolidation to suggest pneumonia. XR/XR chest 2V IMPRESSION: No evidence of pneumonia. Borderline enlargement of the cardiac silhouette. This study was presented today September 25, 2023 for interpretation. Stat results provided at this time as requested by referring provider.
== END 2023-09-25 11:38 | disposition home or self-care (01) ==
LOC: HO.HMGCX 11:37
PROVIDERS: PCP Internal Medicine; Visit Provider Internal Medicine
DX: R05.9 Cough, unspecified (principal)
CPT/HCPCS: 71046

== ENCOUNTER 2024-06-17 11:11 | Outpatient (REF) | payer MEDICARE, SELFPAY ==
--- NOTE | ~2024-06-17 | XR_ITS ---
EXAMINATION: XR KNEE, RIGHT CLINICAL INFORMATION: Right knee pain. COMPARISON: None available. TECHNIQUE: Two views of the right knee. FINDINGS: No acute cortical disruption or malalignment. Sclerosis of the articular surface of the tibial plateau. No lytic or blastic lesions. No suprapatellar bursa joint effusion. There is joint space narrowing involving mostly the medial compartment. Vascular calcifications. XR/XR knee RT 2V IMPRESSION: Medial compartment osteoarthrosis, mild. Atherosclerosis disease, peripheral. Electronically signed by: Aleksandr Harp MD 06/18/2024 09:09 AM WINNIE
== END 2024-06-17 11:12 | disposition home or self-care (01) ==
LOC: HO.HMGCX 11:11
PROVIDERS: PCP Internal Medicine; Visit Provider Internal Medicine
DX: M25.561 Pain in right knee (principal)
CPT/HCPCS: 73560

== ENCOUNTER → 2024-06-17 11:16 | Outpatient (BNV) | payer MEDICARE, SELFPAY | PROVIDERS: PCP Internal Medicine; Visit Provider Radiology Diagnostic Radiology | DX: M17.11 Unilateral primary osteoarthritis, right knee (principal) | CPT/HCPCS: 73560 ==

== ENCOUNTER 2024-09-04 10:44 | Outpatient (AMB) | payer MEDICARE, SELFPAY ==
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
[2024-09-04 10:27] VITALS: BP 147/65; PULSE 55; RESP 14; TEMP 36.4; O2SAT 98; BMI 22.9
== END 2024-09-04 10:57 | disposition home or self-care (01) ==
LOC: HO.HMCSH 10:44
PROVIDERS: PCP Internal Medicine; Visit Provider Physician Assistant Medical
DX: Z76.89 Persons encountering health services in other specified circumstances (principal); E78.2 Mixed hyperlipidemia; I10 Essential (primary) hypertension; F39 Unspecified mood [affective] disorder

== ENCOUNTER → 2024-09-04 10:44 | Outpatient (BNVA) | payer MEDICARE, SELFPAY | PROVIDERS: PCP Internal Medicine; Visit Provider Physician Assistant Medical | DX: I10 Essential (primary) hypertension (principal); E78.2 Mixed hyperlipidemia; F39 Unspecified mood [affective] disorder; Z87.81 Personal history of (healed) traumatic fracture; Z76.89 Persons encountering health services in other specified circumstances | CPT/HCPCS: 96127; 99202 ==

== ENCOUNTER 2024-09-05 08:40 | Outpatient (REF) | payer MEDICARE, SELFPAY ==
[2024-09-05 10:18] LABS: MANUAL DIFF FLAG NO
[2024-09-05 10:25] LABS: Basophils Absolute Auto 0.1 X10*3/uL (0.0-0.2); Basophils Percent Auto 1.1 % (0-2); Eosinophils Absolute Auto 0.4 X10*3/uL (0.0-0.4); Eosinophils Percent Auto 6.8 % (0-4); Hematocrit 39.7 % (37.0-47.0); Hemoglobin 12.9 g/dl (12.0-16.0); Imm Gran Abs Auto 0.01 X10*3/uL (0.00-0.03); Imm Gran Pct Auto 0.2 % (0.0-0.4); Lymphocytes Absolute Auto 1.9 X10*3/uL (1.2-4.9); Lymphocytes Percent Auto 34.3 % (20-40); Mean Corpuscular HGB Conc 32.5 g/dl (31.0-35.0); Mean Corpuscular Hemoglobin 30.4 pg (27.0-33.0); Mean Corpuscular Volume 93.6 fL (80.0-98.0); Mean Platelet Volume 11.7 fL (9.4-12.3); Monocytes Absolute Auto 0.6 X10*3/uL (0.1-1.2); Monocytes Percent Auto 10.3 % (2-11); Neutrophils Absolute Auto 2.6 x10*3/uL (2.0-8.3); Neutrophils Percent Auto 47.3 % (45-73); Platelet Count 165 X10*3/uL (160-400); Red Blood Count 4.24 X10*6/uL (4.20-5.50); Red Cell Distribution Width 13.2 % (11.0-16.0); White Blood Count 5.5 X10*3/uL (4.8-10.8)
[2024-09-05 11:04] LABS: Estimated Average Glucose 120 mg/dL; Hemoglobin A1C 136.1853 umol/L; Hemoglobin A1c % 5.8 % (<6.0)
[2024-09-05 11:31] LABS: Folate 15.3 ng/mL (> or = 4.0); Vitamin B12 776 pg/mL (200-900)
[2024-09-05 11:57] LABS: Alanine Aminotransferase 19 U/L (0-31); Albumin Level 4.1 g/dL (3.5-5.0); Alkaline Phosphatase 74 U/L (39-117); Anion Gap 12 (12-20); Aspartate Amino Transferase 31 U/L (5-31); Bilirubin Direct 0.3 mg/dL (0.0-0.5); Bilirubin Total 0.9 mg/dL (0.0-1.0); Blood Urea Nitrogen 21 mg/dL (9-16); C Reactive Protein 0.17 mg/dL (< or = 0.50); Calcium 9.8 mg/dL (8.4-10.2); Carbon Dioxide 29 mmol/L (22-29); Chloride 106 mmol/L (96-108); Cholesterol 142 mg/dL (<200); Estimated Glomerular Filt Rate 54; Glucose Fasting 100 mg/dL (60-99); HDL Cholesterol 50 mg/dL (>40); LDL Cholesterol Calculated 75 mg/dL (<100); Magnesium 1.9 mg/dL (1.6-2.6); Potassium 4.3 mmol/L (3.3-5.1); Sodium 143 mmol/L (135-145); TSH reflex Free T4 1.18 uIU/mL (0.32-4.0); Triglycerides 85 mg/dL (<150); Vitamin D 25-OH Total 37.9 ng/mL (>30)
== END 2024-09-05 08:41 | disposition home or self-care (01) ==
LOC: HO.HMGCLDS 08:40
PROVIDERS: PCP Internal Medicine; Visit Provider Physician Assistant Medical
DX: Z00.00 Encounter for general adult medical examination without abnormal findings (principal); Z13.1 Encounter for screening for diabetes mellitus; Z13.6 Encounter for screening for cardiovascular disorders
CPT/HCPCS: 36415; 80053; 80061; 80076; 82248; 82306; 82607; 82746; 83036; 83735; 84443; 85025; 86140

== ENCOUNTER 2025-02-26 10:21 | Outpatient (AMB) | payer MEDICARE, SELFPAY ==
--- NOTE | 2025-02-26 09:46 | MHC.PC.OV ---
Vital Signs 02/26/25 10:53 Height 5 ft 6 in Weight 138 lb BMI 22.3 BP 119/56 L Blood Pressure Location Lt brachial Position Sitting Respiration 14 Pulse 67 Pulse Source Pulse Oximeter Temp 97.2 F Temp Source Temporal Artery Scan Pulse Oximetry (%) 99 Oxygen Delivery Method Room Air Intake Visit Reasons: 6 month follow up [place] Required: No Allergies sucralfate (From CARAFATE) Allergy (Unknown, Verified 02/26/25 11:07) ITCHING Medication List - Last Reconciled 02/26/25 by Sowmya Polo PA-C aspirin 81 mg PO DAILY atorvastatin 80 mg PO DAILY cimetidine 400 mg PO BID clorazepate dipotassium 3.75 mg PO TID PRN docusate sodium (Colace) 100 mg PO DAILY ezetimibe 10 mg PO DAILY fluticasone propionate 50 mcg/actuation 2 sprays intranasal DAILY indapamide 2.5 mg PO QAM lisinopril 20 mg PO DAILY metoprolol tartrate 100 mg PO BID polyethylene glycol 3350 (Miralax) 17 grams PO DAILY PRN Tobacco use date assessed: 09/04/24 Dental Screening Dental Screen Date: 09/04/24 HPI 6 month follow up HPI Details The patient is an 79-year-old female presenting for a annual physical exam and a six-month follow-up with a chief complaint of bilateral calf pain. She reports soreness in her bilateral calf worse on the right that causes her to stop walking when she walks too far or too much, with minor discomfort in the left leg as well. She denies any associated chest pain or shortness of breath with activity or when lying flat. She also reports she has right knee pain and would like an x-ray of this. Denies any recent falls. Review of lab work from September revealed a normal CBC, but a GFR of 54, indicating mild kidney disease, and a hemoglobin A1c of 5.8%, consistent with a prediabetic state. Her cholesterol, triglycerides, folate, thyroid function, vitamin D, and B12 levels were all within normal limits. Since learning of her prediabetes, she has been consciously monitoring her sugar intake and has lost 4 pounds. A bone density scan from July 2023 showed osteopenia. The patient declines preventative screenings, including mammograms and colonoscopies, and states she has never had a colonoscopy. Her current medications include aspirin, atorvastatin, Zetia, cimetidine (Tagamet), clorazepate, Colace, indapamide, lisinopril, metoprolol, and MiraLAX. Social History - Functional Status: The patient is independent with her activities of daily living, including cleaning, laundry, and driving. - Diet: She reports actively watching her sugar intake, choosing sugar-free or low-sugar products, and checking food labels. - Weight Management: She has lost four pounds recently. - Falls: She denies any recent falls in the past six months. [facility] Medical History (Updated 02/26/25 @ 13:15 by Sowmya Polo PA-C) Healthcare maintenance Chronic kidney disease (CKD) Prediabetes Annual physical exam Right knee pain Bilateral calf pain Screening for malignant neoplasm of colon declined (~09/04/24) Mammogram declined (~09/04/24) Establishing care with new doctor, encounter for Mood disorder Essential hypertension Mixed hyperlipidemia Family History Father No problems noted. Mother BP (high blood pressure) Social History Household Members: Spouse Housing: Condominium Do you presently have visiting nurse or other home services: No Alcohol intake: current Alcohol intake frequency: holidays/special occasions only Patient Tobacco Use Status: Former Tobacco user service: No Current occupational status: retired Cognitive needs: No Hearing needs: No Vision needs: Yes (reading glasses) Questionnaire PHQ-9 Over the last 2 weeks, how often have you been bothered by any of the following problems? 1. Little interest or pleasure in doing things: not at all 2. Feeling down, depressed, or hopeless: not at all 3. Trouble falling or staying asleep, or sleeping too much: not at all 4. Feeling tired or having little energy: not at all 5. Poor appetite or overeating: not at all 6. Feeling bad about yourself - or that you are a failure or have let yourself or your family down: not at all 7. Trouble concentrating on things, such as reading the newspaper or watching television: not at all 8. Moving or speaking so slowly that other people could have noticed. Or the opposite - being so fidgety or restless that you have been moving around a lot more than usual: not at all 9. Thoughts that you would be better off or of hurting yourself in some way: not at all Total score: 0 Depression Screening Interpretation: Negative Depression Screening Done: Yes 40082 - PHQ-9 Billing: Yes Source: Developed by Drs. Misael Villatoro, Shayla Youssef, Timi Hare and colleagues, with an educational octavio from [employer]. Thrive Questionnaire Date Thrive assessed: 09/04/24 I am a: Patient What is your living situation today?: I have a steady place to live Within the past 12 months, did the food you bought not last and you didn't have the money to get more?: Never true Within the past 12 months, did you worry whether your food would run out before you got money to buy more?: Never true Do you have trouble paying for medicines?: No Do you have trouble getting transportation to medical appointments?: No Do you have trouble paying your heating and electricity bill?: No Do you have trouble taking care of your child, family member or friend?: No Do you have trouble with day-to-day activities such as bathing, preparing meals, shopping, managing finances, etc.?: No Are you currently unemployed and looking for a job?: No Are you interested in more education?: No Please select the resources that you would like help with: None THRIVE Score: 0 AUDIT C Alcohol Use Questionnaire (AUDIT-C) 1. How often do you have a drink containing alcohol?: Monthly or less 2. How many drinks containing alcohol do you have on a typical day when you are drinking?: 1 or 2 3. How often do you have six or more drinks on one occasion?: Never Total Score: 1 Score Reviewed/Action Taken: No CHANDA-7 AMB Questionnaire CHANDA-7 Date CHANDA - 7 assessed: 09/04/24 Feeling nervous, anxious, or on edge: 0 = Not at all Not being able to stop or control worryin = Not at all Worrying too much about different things: 0 = Not at all Trouble relaxin = Not at all Being so restless that it is hard to sit still: 0 = Not at all Becoming easily annoyed or irritable: 0 = Not at all Feeling afraid as if something awful might happen: 0 = Not at all Total CHANDA-7 score (0-4 normal; 5-9 mild; 10-14 moderate; 15-21 severe): 0 Source: Developed by Drs. Misael Villatoro, Shayla Youssef, Timi Hare and colleagues, with an educational octavio from [employer]. CHANDA-7 Assessment Billing CHANDA-7 Assessment Tool: CHANDA-7 Assessment 44559 Review of Systems Const Details: - Constitutional: Denies unintentional weight loss. - Cardiovascular: Denies chest pain or shortness of breath when lying flat. - Respiratory: Denies shortness of breath on exertion. - Gastrointestinal: Denies black or bloody stools. - Genitourinary: Denies dysuria or hematuria. - Musculoskeletal: Reports right calf soreness that worsens with ambulation, requiring her to stop. Reports mild discomfort in the left leg. - Neurological: Denies numbness, tingling, headaches, or dizziness. - HEENT: Denies hearing problems. All systems reviewed & are unremarkable except as noted in HPI and below Physical exam (Primary Care) Vital Signs: Last Vital Signs Temp 97.2 F 02/26/25 10:53 Pulse 67 02/26/25 10:53 Resp 14 02/26/25 10:53 BP 119/56 L 02/26/25 10:53 Pulse Ox 99 02/26/25 10:53 Oxygen Delivery Method Room Air 02/26/25 10:53 Care Plan Goal for BP management: <140/90 at Goal BMI result Body Mass Index 22.3 Normal BMI Tobacco/Smoking Status: Tobacco use Status Tobacco use date assessed 09/04/24 02/26/25 09:49 Patient Tobacco Use Status Former Tobacco user 02/26/25 09:49 PHQ-9: PHQ-9 Score PHQ-9: Total score 0 02/26/25 11:04 Depression Screening Interpretation: Negative Thrive Assessment: Date of Thrive Assessment Date Thrive assessed 09/04/24 02/26/25 09:49 Const Other: Appearance: Alert. Oriented X3. No acute distress. Head: Normal external exam. Normocephalic. Atraumatic. Eyes: Pupils are equal, round, and reactive to light. Extraocular movements intact. Conjunctiva and sclera normal. Eyelids normal. Ears: External auditory canal normal. Tympanic membranes normal. Throat: Pharynx normal. Uvula midline. Moist mucous membranes. Neck: Normal inspection. Neck supple. Full range of motion. No adenopathy. Thyroid Normal. No meningeal signs. No neck mass noted. Cardiovascular: Normal heart rate and rhythm. Heart sound normal. No murmurs noted. Pulses normal throughout. Respiratory: No respiratory distress. Painless inspiration. Breath sounds normal. No wheezes/rales/rhonchi noted. Chest nontender. No accessory muscle usage noted or decreased air movement noted. Abdomen: Soft and nontender. Bowel sounds normal in all 4 quadrants. No distention noted. No organomegaly noted. No visible injury noted. Back: No costovertebral angle tenderness. Full range of motion noted. Skin: Skin warm and dry. Normal skin color. Normal skin turgor. No rashes/lesions/lacerations noted. Extremities: No lower extremity edema. Extremities exhibit normal range of motion. Right calf is sore, and pain increases with walking. Ultrasound ordered to rule out blood clot. Extremities nontender otherwise. Neuro: Oriented X 3. No motor deficit. No sensory deficit. Reflexes normal. Results Reviewed Results Reviewed: - Labs (): CBC was normal. - Labs (): CMP showed a GFR of 54, creatinine of 0.99, and BUN of 21. - Labs (): Hemoglobin A1c was 5.8%. - Labs (): Cholesterol, triglycerides, folate, thyroid, vitamin D, and B12 were normal. - Imaging (08/09/2023): Bone density scan showed osteopenia. Coding Level of Care Code Est Pt Level 4 (58279) Est Pt Prev Care >65y(03948) Diagnoses Annual physical exam Z00.00 Bilateral calf pain M79.661; M79.662 Right knee pain M25.561 Prediabetes R73.03 Chronic kidney disease (CKD) N18.9 Healthcare maintenance Z00.00 Additional Codes CHANDA-7 Assessment Billing - CHANDA-7 Assessment Tool: CHANDA-7 Assessment 55891 ([id number]) PHQ-9 - 62666 - PHQ-9 Billing: Yes ([id number]) Time Spent (min) 65 Assessment & Plan Assessment & Plan (1) Annual physical exam: Code(s): Z00.00 - Encounter for general adult medical examination without abnormal findings Category: Medical Plan: This appointment will serve as the patient's annual physical exam. The patient was educated on but declined routine mammogram and colonoscopy screenings. Follow-up labs, including a CBC, CMP, HbA1c, and lipid panel, will be ordered for her next visit in six months. A urinalysis will be collected today. The patient will follow up in six months. (2) Bilateral calf pain: Code(s): M79.661 - Pain in right lower leg; M79.662 - Pain in left lower leg Category: Medical Plan: The patient's new-onset bilateral leg pain on exertion worse on the right is concerning for a vascular etiology. An urgent ultrasound of the legs will be ordered to rule out deep vein thrombosis. A referral to vascular surgery will also be placed, as the pain may be related to varicose veins if the ultrasound is negative. Will also order a right knee x-ray. (3) Right knee pain: Code(s): M25.561 - Pain in right knee Category: Medical Plan: The patient's new-onset bilateral leg pain on exertion worse on the right is concerning for a vascular etiology. An urgent ultrasound of the legs will be ordered to rule out deep vein thrombosis. A referral to vascular surgery will also be placed, as the pain may be related to varicose veins if the ultrasound is negative. Will also order a right knee x-ray. (4) Prediabetes: Code(s): R73.03 - Prediabetes Category: Medical Plan: The patient's hemoglobin A1c of 5.8% places her in the prediabetic range. She has been making positive dietary changes and has achieved weight loss. A urinalysis will be performed today to check for glucosuria. A repeat hemoglobin A1c will be included in the labs ordered for her 6-month follow-up. (5) Chronic kidney disease (CKD): Code(s): N18.9 - Chronic kidney disease, unspecified Category: Medical Plan: The patient has mild chronic kidney disease with a GFR of 54. She has been advised to avoid NSAIDs, such as Aleve and Motrin. Kidney function will be monitored with a CMP to be performed in six months. (6) Healthcare maintenance: Code(s): Z00.00 - Encounter for general adult medical examination without abnormal findings Category: Medical Plan: This appointment will serve as the patient's annual physical exam. The patient was educated on but declined routine mammogram and colonoscopy screenings. Follow-up labs, including a CBC, CMP, HbA1c, and lipid panel, will be ordered for her next visit in six months. A urinalysis will be collected today. The patient will follow up in six months. Plan Plan Patient was informed and verbally consented to the use of an ambient scribe for clinic note documentation during this visit. 1. Bilateral Leg Pain worse on the right leg The patient's new-onset bilateral leg pain on exertion worse on the right is concerning for a vascular etiology. An urgent ultrasound of the legs will be ordered to rule out deep vein thrombosis. A referral to vascular surgery will also be placed, as the pain may be related to varicose veins if the ultrasound is negative. Will also order a right knee x-ray. 2. Prediabetes The patient's hemoglobin A1c of 5.8% places her in the prediabetic range. She has been making positive dietary changes and has achieved weight loss. A urinalysis will be performed today to check for glucosuria. A repeat hemoglobin A1c will be included in the labs ordered for her 6-month follow-up. 3. Mild Chronic Kidney Disease The patient has mild chronic kidney disease with a GFR of 54. She has been advised to avoid NSAIDs, such as Aleve and Motrin. Kidney function will be monitored with a CMP to be performed in six months. 4. Health Maintenance This appointment will serve as the patient's annual physical exam. The patient was educated on but declined routine mammogram and colonoscopy screenings. Follow-up labs, including a CBC, CMP, HbA1c, and lipid panel, will be ordered for her next visit in six months. A urinalysis will be collected today. The patient will follow up in six months. I have designated today's six-month follow-up as the patient's annual physical exam for this year. I reviewed her recent lab results from August, discussing the findings of mild kidney disease (GFR 54) and prediabetes (HbA1c 5.8). I advised her to avoid NSAIDs like Aleve and Motrin to protect her kidneys. We discussed her new bilateral calf pain worse on the right, and I explained that I will order an urgent leg ultrasound to rule out a blood clot and refer her to vascular surgery for further evaluation, as it could be related to varicose veins. I acknowledged her successful dietary changes and 4-pound weight loss. We discussed preventative care, and I documented her informed decision to decline mammogram and colonoscopy screenings. I informed her that a urinalysis will be collected today and a full panel of blood work will be due before her next six-month follow-up appointment. Orders: Orders Erythrocyte Sedimentation Rate Today Z00.00 - Encounter for general adult medical examination without abnormal findings Hemoglobin A1c Today Z00.00 - Encounter for general adult medical examination without abnormal findings Magnesium Today Z00.00 - Encounter for general adult medical examination without abnormal findings Lipid Panel Today Z00.00 - Encounter for general adult medical examination without abnormal findings TSH reflex Free T4 Today Z00.00 - Encounter for general adult medical examination without abnormal findings UA CC w/rflx Micro + Cult Today Z00.00 - Encounter for general adult medical examination without abnormal findings Microalbumin, Random (w Creat) Today E11.9 - Type 2 diabetes mellitus without complications C Reactive Protein Today Z00.00 - Encounter for general adult medical examination without abnormal findings Complete Blood Count Auto Diff Today Z00.00 - Encounter for general adult medical examination without abnormal findings Comprehensive [place]. Panel Fast Today Z00.00 - Encounter for general adult medical examination without abnormal findings Liver Panel Today Z00.00 - Encounter for general adult medical examination without abnormal findings Vitamin B12 and Folate Today Z00.00 - Encounter for general adult medical examination without abnormal findings Vitamin D 25-OH Total Today Z00.00 - Encounter for general adult medical examination without abnormal findings US venous duplex LE BI Today M79.661 - Pain in right lower leg, M79.662 - Pain in left lower leg XR knee RT 4V Today M25.561 - Pain in right knee Patient Instructions: - We are ordering an urgent ultrasound of your legs to check for blood clots due to your leg pain. The imaging center will call you to schedule. If you do not hear from them within two to three weeks, please call our office. - We are also referring you to a vascular surgeon to see if varicose veins might be causing your pain. - Avoid taking pain relievers like Aleve or Motrin (NSAIDs), as they can be hard on your kidneys. - Continue your great work with watching your diet and sugar intake to manage your prediabetes. - Please provide a urine sample before you leave the clinic today. - You will need to get blood work done before your next appointment. - Please return to the clinic for a follow-up visit in six months.
[2025-02-26 10:53] VITALS: BP 119/56; PULSE 67; RESP 14; TEMP 36.2; O2SAT 99; BMI 22.3
== END 2025-02-26 11:29 | disposition home or self-care (01) ==
PROVIDERS: PCP Physician Assistant Medical; Visit Provider Physician Assistant Medical
DX: Z00.00 Encounter for general adult medical examination without abnormal findings (principal); M79.661 Pain in right lower leg; M79.662 Pain in left lower leg; M25.561 Pain in right knee; R73.03 Prediabetes; N18.9 Chronic kidney disease, unspecified

== ENCOUNTER 2025-02-26 10:21 | Outpatient (REF) | payer MEDICARE, SELFPAY ==
--- NOTE | ~2025-02-26 | XR_ITS ---
EXAMINATION: XR KNEE, RIGHT CLINICAL INFORMATION: M25.561 - Pain in right knee COMPARISON: June 17, 2024. TECHNIQUE: AP, oblique, lateral and sunrise views. of the right knee. FINDINGS: Joint space narrowing involving medial and lateral compartment, mild. Mild sclerosis and the tibial plateau articular surfaces. No acute fracture or dislocation. No suprapatellar bursa effusion. No lytic or blastic lesions. Vascular calcifications. XR/XR knee RT 4V IMPRESSION: Bicompartmental osteoarthrosis/osteoarthritis, mild. Atherosclerosis disease, peripheral. Electronically signed by: Aleksandr Harp MD 02/26/2025 12:22 PM EST
[2025-02-26 17:57] LABS: Appearance Urine Clear; Glucose Urine UA Negative (Negative); PH 5.5 (5.0-9.0); Specific Gravity - Urine 1.010 (1.005-1.025)
== END 2025-02-26 10:22 | disposition home or self-care (01) ==
LOC: HO.HMGCX 10:21
PROVIDERS: PCP Physician Assistant Medical; Visit Provider Physician Assistant Medical
DX: Z00.00 Encounter for general adult medical examination without abnormal findings (principal); M25.561 Pain in right knee; M79.662 Pain in left lower leg; M79.661 Pain in right lower leg; M85.80 Other specified disorders of bone density and structure, unspecified site; N18.9 Chronic kidney disease, unspecified
CPT/HCPCS: 73564; 81003; 82570; 96127; 99212; 99397

== ENCOUNTER → 2025-02-26 12:07 | Outpatient (BNV) | payer MEDICARE, SELFPAY | PROVIDERS: PCP Physician Assistant Medical; Visit Provider Radiology Diagnostic Radiology | DX: M17.12 Unilateral primary osteoarthritis, left knee (principal); I70.201 Unspecified atherosclerosis of native arteries of extremities, right leg | CPT/HCPCS: 73564 ==

== ENCOUNTER 2025-02-28 09:49 | Outpatient (REF) | payer MEDICARE, SELFPAY ==
--- NOTE | ~2025-02-28 | US_ITS ---
EXAMINATION: US TRIPLEX LOWER EXTREMITY, BILATERAL CLINICAL INFORMATION: Pain, lower extremities calf region. COMPARISON: None available. TECHNIQUE: Color-flow triplex imaging with spectral analysis and compression Doppler were performed on the bilateral lower extremities. FINDINGS: Respiratory variation, normal compression and augmented flow are demonstrated in the interrogated Common femoral vein, superficial femoral vein, profunda femoral vein, popliteal vein and midcalf peroneal and posterior tibial venous segments, both lower extremities.. There is no Reyes's cyst. US/US venous duplex LE BI IMPRESSION: No acute deep venous thrombosis interrogated veins of the lower extremities. Negative for DVT. Electronically signed by: Aleksandr Harp MD 02/28/2025 10:26 AM WIN[facility]
== END 2025-02-28 09:50 | disposition home or self-care (01) ==
LOC: HO.US 09:49
PROVIDERS: PCP Internal Medicine; Visit Provider Physician Assistant Medical
DX: M79.661 Pain in right lower leg (principal); M79.662 Pain in left lower leg
CPT/HCPCS: 93970

== ENCOUNTER → 2025-02-28 09:52 | Outpatient (BNV) | payer MEDICARE, SELFPAY | PROVIDERS: PCP Internal Medicine; Visit Provider Radiology Diagnostic Radiology | DX: M79.661 Pain in right lower leg (principal); M79.662 Pain in left lower leg | CPT/HCPCS: 93970 ==